=== PATIENT | female | born 2000 | race Caucasian/White ===

== ENCOUNTER 2024-08-03 11:25 | Emergency (ER) | payer MEDICAID ==
[~2024-08-03] VITALS: Ht 167.6 cm; Wt 62.0 kg
[2024-08-03 11:35] VITALS: TEMP 37.2; O2SAT 100
[2024-08-03] MEDS ORDERED: NAPR-681 MT (12:18)
[2024-08-03] MEDS ORDERED: ERYT1OIN6 RIGHTEYE (12:18)
[2024-08-03] MEDS ORDERED: CEPH500C2 MT (12:18)
[2024-08-03] MEDS ORDERED: SULF1TAB48 MT (12:18)
[2024-08-03 12:43] VITALS: BP 101/58; PULSE 83; RESP 12; O2SAT 99
== END 2024-08-03 12:44 | disposition home or self-care (01) ==
LOC: ER 11:25
DX: H01.003 Unspecified blepharitis right eye, unspecified eyelid (principal); L03.213 Periorbital cellulitis
CPT/HCPCS: 99283